=== PATIENT | female | born 1990 | race African-American/Black ===

== ENCOUNTER 2016-05-18 09:19 | Emergency (ER) | payer OTHER ==
[2016-05-18] MEDS ORDERED: IBUPROFEN 800 MG TABLET PO STA (09:47)
[2016-05-18] MEDS ORDERED: IBUPROFEN 800 MG TABLET PO ONE (09:53)
== END 2016-05-18 11:35 | disposition home or self-care (01) ==
DX: J02.9 Acute pharyngitis, unspecified (principal)
CPT/HCPCS: 36415; 86308; 87070; 87430; 99283; A9270

== ENCOUNTER 2016-10-24 15:55 | Emergency (ER) | payer OTHER ==
[2016-10-24 17:43] LABS: BILIRUBIN,URINE NEGATIVE (NEGATIVE)
[2016-10-24 17:44] LABS: UA CHARGE (STRIP ONLY) YES; UR CULTURE IF IND NOT INDICATED
[2016-10-24 17:46] LABS: HCG UR QUAL POSITIVE
--- NOTE | 2016-10-24 18:13 | ED Physician Documentation ---
History of Present Illness - Stated complaint Stated Complaint: FEMALE - Chief complaint Chief Complaint: General - Additonal information Additional information: Very nice 26-year-old 1 para 0 diagnosed herself with today by urine testing. Should her last normal menses was September 02. She took Plan B at the end of August and had some bleeding September 17 she has not had any menses from that time to the present. She did have some bleeding on Sunday and Sunday with cramping and possible passage of clots and it had more cramping today without bleeding. There is no abdominal pain. She has not had any fever chills, constipation diarrhea lower urinary symptoms. She is otherwise healthy there is no syncopal episode. Review of systems: For pertinent positive and negatives in the review of systems please see the history of present illness, otherwise all other systems have been reviewed and are negative. Dragon disclaimer: Parts of this medical record were created using voice recognition technology. Because of the inherent limitations of this system, occasional same sounding word substitutions do occur and persist despite proofreading. Please read the document for context. 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 - Present Medications Home Medications: Ambulatory Orders Medication Instructions Recorded Confirmed No Known Home Medications [No 10/24/16 10/24/16 Known Home Medications] - Allergies Allergies/Adverse Reactions: Allergies Allergy/AdvReac Type Severity Reaction Status Date / Time No Known Drug Allergies Allergy Verified 10/24/16 16:05 - Social History Does the pt smoke?: No Smoking Status: Never smoker Does the pt drink ETOH?: Yes Does the pt have substance abuse?: No - Immunizations Immunizations are current?: Yes - POLST Patient has POLST: No PD ED PE NORMAL - Vitals Vital signs reviewed: Yes - General General: Alert and oriented X 3, No acute distress, Well developed/nourished - HEENT HEENT: Atraumatic, PERRL, EOMI - Neck Neck: Supple, no meningeal sign, No bony TTP, No adenopathy - Cardiac Cardiac: RRR, No murmur, No gallop, No rub - Respiratory Respiratory: No respiratory distress, Clear bilaterally - Abdomen Abdomen: Normal bowel sounds, Soft, Non tender, Non distended - Female Female : Deferred, Pt declined, Dye Stand Loader present, Other - Back Back: No CVA TTP, No spinal TTP Results - Vitals Vitals: Vital Signs - 24 hr 10/24/16 16:02 Temperature 36.7 C Heart Rate 104 H Respiratory 18 Rate Blood Pressure 138/78 H O2 Saturation 100 Oxygen O2 Source Room air - Labs Labs: Laboratory Tests 10/24/16 10/24/16 10/24/16 17:25 17:25 18:14 WBC 7.3 RBC 4.73 Hgb 13.7 Hct 40.7 MCV 86.1 MCH 28.9 MCHC 33.6 RDW 12.9 Plt Count 272 MPV 7.4 L Neut # 3.3 Lymph # 2.9 [place] # 0.9 Eos # 0.1 Baso # 0.1 Absolute Nucleated RBC 0.00 Nucleated RBCs 0.0 Sodium Potassium Chloride Carbon Dioxide Anion Gap BUN Creatinine Estimated GFR (MDRD) Glucose Calcium Total Bilirubin Direct Bilirubin AST ALT Alkaline Phosphatase Total Protein Albumin Globulin HCG, Quant Urine Color YELLOW Urine Clarity CLEAR Urine pH 7.0 Ur Specific [place] 1.015 1.015 Urine Protein NEGATIVE Urine Glucose (UA) NEGATIVE Urine Ketones NEGATIVE Urine Occult Blood NEGATIVE Urine Nitrite NEGATIVE Urine Bilirubin NEGATIVE Urine Urobilinogen 0.2 (NORMAL) Ur Leukocyte Esterase NEGATIVE Ur Microscopic Review NOT INDICATED Urine Culture Comments NOT INDICATED Urine HCG, Qual POSITIVE Blood Type Antibody Screen 10/24/16 10/24/16 10/24/16 18:14 18:14 18:14 WBC RBC Hgb Hct MCV MCH MCHC RDW Plt Count MPV Neut # Lymph # [place] # Eos # Baso # Absolute Nucleated RBC Nucleated RBCs Sodium 135 Potassium 3.6 Chloride 104 Carbon Dioxide 23 Anion Gap 8.0 BUN 11 Creatinine 0.8 Estimated GFR (MDRD) 105 Glucose 92 Calcium 9.4 Total Bilirubin Direct Bilirubin AST ALT Alkaline Phosphatase Total Protein Albumin Globulin HCG, Quant 42159.00 Urine Color Urine Clarity Urine pH Ur Specific [place] Urine Protein Urine Glucose (UA) Urine Ketones Urine Occult Blood Urine Nitrite Urine Bilirubin Urine Urobilinogen Ur Leukocyte Esterase Ur Microscopic Review Urine Culture Comments Urine HCG, Qual Blood Type B POSITIVE Antibody Screen NEGATIVE 10/24/16 18:14 WBC RBC Hgb Hct MCV MCH MCHC RDW Plt Count MPV Neut # Lymph # [place] # Eos # Baso # Absolute Nucleated RBC Nucleated RBCs Sodium Potassium Chloride Carbon Dioxide Anion Gap BUN Creatinine Estimated GFR (MDRD) Glucose Calcium Total Bilirubin 0.4 Direct Bilirubin < 0.1 L AST 22 ALT 18 Alkaline Phosphatase 31 L Total Protein 7.8 Albumin 4.3 Globulin 3.5 HCG, Quant Urine Color Urine Clarity Urine pH Ur Specific [place] Urine Protein Urine Glucose (UA) Urine Ketones Urine Occult Blood Urine Nitrite Urine Bilirubin Urine Urobilinogen Ur Leukocyte Esterase Ur Microscopic Review Urine Culture Comments Urine HCG, Qual Blood Type Antibody Screen PD MEDICAL DECISION MAKING - ED course Complexity details: reviewed results, re-evaluated patient, d/w patient, d/w family, d/w medical cost consultant ED course: Pleasant 26-year-old female who it appears as an ectopic . Her quant is 17,000 without IUP on ultrasound. In addition there is a cystic mass in the right lower quadrant that is thick-walled at about 2.4 cm it probably represents an ectopic . The patient clinically is doing very well. Her os is closed on examination without bleeding. There is no free fluid in the abdomen she looks and feels good. She is more or less asymptomatic the case was discussed with CHECK GRADER who came in right away to see the patient. She was examined and we had a discussion. We think this patient is probably a good candidate for multiple dose methotrexate therapy. The patient is completely asymptomatic and looks to be in good condition. She was given a dose of methotrexate here and will follow up with CHECK GRADER tomorrow for leuko-Matt in addition of methotrexate therapy over the next week. The patient is given symptoms to watch for and should she get worse anyway she should return to the emergency department right away. Disposition: To home Clinical impression: 1. Ectopic started on methotrexate therapy tonight follow-up tomorrow with CHECK GRADER Departure - Departure Disposition: Home, Self Care Clinical Impression: Ectopic of ovary Qualifiers: Intrauterine status: without intrauterine Qualified Code(s) : O00.20 - Ovarian without intrauterine Condition: Good Instructions: ED Preg Ectopic Methotrexate Tx Follow-Up: Yadiel Deshpande MD [Provider Admit Priv/Credential] - Comments: Follow-up with Dr. Tobar tomorrow
[2016-10-24 18:39] LABS: CALCIUM 9.4 mg/dL (8.5-10.3); CREATININE 0.8 mg/dL (0.4-1.0); POTASSIUM 3.6 mmol/L (3.5-5.0)
[2016-10-24 18:43] LABS: BASOPHILS # (AUTO) 0.1 10^3/uL (0.0-0.1); EOSINOPHILS # (AUTO) 0.1 10^3/uL (0.0-0.7); HCT - HEMATOCRIT 40.7 % (37.0-47.0); HGB - HEMOGLOBIN 13.7 g/dL (12.0-16.0); LYMPHOCYTES # (AUTO) 2.9 10^3/uL (1.5-3.5); LYMPHOCYTES % (AUTO) 39.7 %; MEAN CORPUSCULAR HEMOGLOBIN 28.9 pg (27.0-31.0); MEAN CORPUSCULAR HGB CONC 33.6 g/dL (32.0-36.0); MEAN CORPUSCULAR VOLUME 86.1 fL (81.0-99.0); MEAN PLATELET VOLUME 7.4 fL (7.9-10.8); MONOCYTES # (AUTO) 0.9 10^3/uL (0.0-1.0); MONOCYTES % (AUTO) 12.7 %; NEUTROPHILS # (AUTO) 3.3 10^3/uL (1.5-6.6); NEUTROPHILS % (AUTO) 45.6 %; RED BLOOD COUNT 4.73 10^6/uL (4.20-5.40); RED CELL DISTRIBUTION WIDTH 12.9 % (12.0-15.0); UNCORRECTED WHITE BLOOD COUNT 7.3 x10^3/uL; WHITE BLOOD COUNT 7.3 x10^3/uL (4.8-10.8)
--- NOTE | 2016-10-24 20:40 | Ultrasound Report ---
EXAM: FIRST TRIMESTER OBSTETRIC ULTRASOUND (Less than 11 weeks) EXAM DATE: 10/24/2016 08:03 PM. CLINICAL HISTORY: Vaginal bleeding early preg. LMP: 09/17/2016. COMPARISONS: None. TECHNIQUE: Transabdominal and transvaginal ultrasound examination with static image documentation. CLINICAL DATES: EGA 5 weeks 2 days with JARED 06/24/2017 based on LMP. ASSESSMENT: Gestational Sac: No intrauterine gestational sac visualized. MATERNAL STRUCTURES: Uterus: Anteverted. Posterior intramural fibroid measuring 2.5 x 1.9 x 2.3 cm.. Heterogeneous endomet rium Cervix: Closed. Right Ovary/Adnexa: Normal morphology.. The ovary measures 2.0 x 1.9 x 2.5 cm, volume 7 cc. Left Ovary/Adnexa: There is a thick walled, 2.1 x 2.4 x 1.9 cm left pelvic cystic mass with periphera l hyperemia. No normal left ovary seen. This is suspicious for either an ectopic or corpus luteal cyst.. Free Fluid: None. Other: None. IMPRESSION: 1. No intrauterine . 2. The left ovary is not visualized. There is however a thick walled 2.4 cm left pelvic cystic mass s uspicious for ectopic . Corpus luteal cyst however may have a similar appearance. Correlatio n with clinical findings including beta hCG advised as discussed with Dr. Montero. ERICK The above findings were discussed with Winston by Dr. Moises Chavez at 20:36 hrs on 10/24/16. Referring Provider Line: [phone] SITE ID: [id number]
--- NOTE | 2016-10-24 20:45 | Ultrasound Preliminary Report ---
Exam: US OB TRANSVAGINAL Please refer to combined report. SITE ID: [id number]
--- NOTE | 2016-10-24 20:48 | Ultrasound Report ---
Please refer to combined OB ultrasound report. Referring Provider Line: [phone] SITE ID: [id number]
[2016-10-24] MEDS ORDERED: METHOTREXATE 50 MG/2 ML MDV ONE ×2 (22:07→22:57)
[2016-10-24] MEDS ORDERED: METHOTREXATE 50 MG/2 ML MDV IM STA (22:40)
[2016-10-24 23:06] LABS: BILIRUBIN,TOTAL 0.4 mg/dL (0.2-1.0); TOTAL PROTEIN 7.8 g/dL (6.7-8.2)
[2016-10-24 23:09] LABS: BILIRUBIN,DIRECT < 0.1 mg/dL (0.1-0.5)
[2016-10-25 00:18] VITALS: BP 144/77
--- NOTE | 2016-10-25 00:56 | HISTORY & PHYSICAL EXAMINATION ---
DATE OF ADMISSION: 10/24/2016 IDENTIFICATION: A 26-year-old G1, P0 female whose last normal menstrual period was 09/03/2016. CHIEF COMPLAINT: Positive test. HISTORY OF PRESENT ILLNESS: The patient had her last menstrual period on the 03 of September. She took Plan B on 09/10/2016 because of concerns about conception. She had some bleeding on 09/17/2016. On the 24 of September she took a second Plan B. On the 22 of October she developed some bleeding and passed tissue. She took a test at that time and was noted to be positive. She called the clinic and was sent here for evaluation. She denies any pelvic pain at this time. She denies any bleeding at this time. Her ultrasound in the emergency room showed a mass in the left side of the adnexa and her quantitative hCG was 17,000. She states the when she had her ultrasound there was tenderness on the left hand side with vaginal probe. She denies any history of PID, chlamydia or IUD use. PAST MEDICAL HISTORY: The patient denies any hypertensive, diabetic, or pulmonary disease. PAST SURGICAL HISTORY: Positive for benign tumor in the right breast, which was removed in 2013. ALLERGIES: NONE KNOWN. CURRENT MEDICATIONS: None. HABITS: The patient denies use of tobacco, drinks alcohol maybe 2-3 times per month and denies use of any street drugs. 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 FAMILY HISTORY: Positive for diabetes in an uncle. REVIEW OF SYSTEMS: Negative concerning vision, hearing, sense of smell or taste , chronic cough, sputum production, shortness of breath, chest pain, nausea, vomiting, diarrhea, constipation, joint pain, muscle weakness, seizures, loss of consciousness, numbness or tingling in any portion of the body. PHYSICAL EXAMINATION: GENERAL: The patient is a well-developed, well-nourished black female. She is stable at this time. She weighs 76 kilograms. VITAL SIGNS: Temperature is 96.7, heart rate is 104, blood pressure was 138/78, respirations were 18. She is 100% on room air. HEENT: Pupils are equal, round. Extraocular muscles are intact. HEART: Regular rate and rhythm without murmurs. LUNGS: [place] are clear without rales or wheezes. BACK: No spinal or CVA tenderness noted. ABDOMEN: Soft with bowel sounds. It is nontender throughout. There is no evidence of rebound or guarding. EXTREMITIES: DTRs are 2+. There was no evidence of any clonus. Ultrasound showed a left adnexal mass which was 2.4 cm. There was no fluid in the pelvis and the uterus is empty at this time. Quantitative hCG is 17,043 international units. Her CBC showed a white count of 7.3, hemoglobin 13.7, platelets are 274. Electrolytes were all within normal limits. IMPRESSION: A 26-year-old, G1, P0 female with evidence of an ectopic , which is stable at this time. I have reviewed up to date regarding the use of methotrexate and a single dose is contraindicated in quant value greater than 5000. However, she is potentially a candidate for multiple doses of methotrexate 1 mg/kg IM days 1, 3, 5, and 7. This would also require leucovorin days 0.1 mg/kg days 2, 4, 6 and 8. She would need to have quantitative hCGs drawn on the basis of her methotrexate injection. PLAN: Atthis time pt requests Methotrexate. risks and benifits explained. JOB #: [id number] EXT JOB #:[id number] MTDAna
== END 2016-10-25 | disposition home or self-care (01) ==
LOC: ED 15:55
DX: O00.20 Ovarian pregnancy without intrauterine pregnancy (principal)
CPT/HCPCS: 36415; 76801; 76817; 80048; 80076; 81003; 81025; 84702; 85025; 86850; 86900; 86901; 96372; 99283; J9250; 81001; 87086

== ENCOUNTER 2016-11-03 09:40 | Outpatient (CLI) | payer OTHER ==
[2016-11-03 10:09] LABS: BASOPHILS % (AUTO) 0.2 %; EOSINOPHILS # (AUTO) 0.1 10^3/uL (0.0-0.7); HCT - HEMATOCRIT 38.3 % (37.0-47.0); HGB - HEMOGLOBIN 12.8 g/dL (12.0-16.0); LYMPHOCYTES % (AUTO) 29.4 %; MEAN CORPUSCULAR HGB CONC 33.5 g/dL (32.0-36.0); MEAN CORPUSCULAR VOLUME 86.5 fL (81.0-99.0); MEAN PLATELET VOLUME 7.1 fL (7.9-10.8); MONOCYTES # (AUTO) 0.3 10^3/uL (0.0-1.0); NEUTROPHILS # (AUTO) 4.4 10^3/uL (1.5-6.6); NEUTROPHILS % (AUTO) 65.4 %; RED BLOOD COUNT 4.43 10^6/uL (4.20-5.40); RED CELL DISTRIBUTION WIDTH 12.5 % (12.0-15.0); UNCORRECTED WHITE BLOOD COUNT 6.8 x10^3/uL; WHITE BLOOD COUNT 6.8 x10^3/uL (4.8-10.8)
[2016-11-03 10:13] LABS: CALCIUM 9.4 mg/dL (8.5-10.3); CREATININE 0.7 mg/dL (0.4-1.0); POTASSIUM 3.9 mmol/L (3.5-5.0)
== END 2016-11-03 09:41 | disposition home or self-care (01) ==
LOC: LAB 09:40
PROVIDERS: ATTEND Obstetrics & Gynecology
DX: O00.10 Tubal pregnancy without intrauterine pregnancy (principal)
CPT/HCPCS: 36415; 80048; 84702; 85025

== ENCOUNTER 2016-11-06 14:33 | Outpatient (CLI) | payer OTHER | END 2016-11-06 14:34 | disposition home or self-care (01) | LOC: LAB 14:33 | PROVIDERS: ATTEND Obstetrics & Gynecology | DX: O00.90 Unspecified ectopic pregnancy without intrauterine pregnancy (principal) | CPT/HCPCS: 36415; 84702 ==

== ENCOUNTER 2016-11-13 11:03 | Outpatient (CLI) | payer OTHER | END 2016-11-13 11:04 | disposition home or self-care (01) | LOC: LAB 11:03 | PROVIDERS: ATTEND Obstetrics & Gynecology | DX: O00.10 Tubal pregnancy without intrauterine pregnancy (principal) | CPT/HCPCS: 36415; 84702 ==

== ENCOUNTER 2016-11-20 09:55 | Outpatient (CLI) | payer OTHER | END 2016-11-20 09:56 | disposition home or self-care (01) | LOC: LAB 09:55 | PROVIDERS: ATTEND Obstetrics & Gynecology | DX: Z32.00 Encounter for pregnancy test, result unknown (principal) | CPT/HCPCS: 36415; 84702 ==

== ENCOUNTER 2016-11-27 08:00 | Outpatient (CLI) | payer OTHER | END 2016-11-27 08:01 | disposition home or self-care (01) | LOC: LAB.WCP 08:00 | PROVIDERS: ATTEND Obstetrics & Gynecology | DX: Z32.00 Encounter for pregnancy test, result unknown (principal) | CPT/HCPCS: 36415; 84702 ==

== ENCOUNTER 2016-12-04 08:00 | Outpatient (CLI) | payer OTHER | END 2016-12-04 08:01 | disposition home or self-care (01) | LOC: LAB.WCP 08:00 | PROVIDERS: ATTEND Obstetrics & Gynecology | DX: O00.80 Other ectopic pregnancy without intrauterine pregnancy (principal) | CPT/HCPCS: 36415; 84702 ==

== ENCOUNTER 2017-01-01 10:19 | Outpatient (CLI) | payer OTHER | END 2017-01-01 10:20 | disposition home or self-care (01) | LOC: LAB.WCP 10:19 | PROVIDERS: ATTEND Obstetrics & Gynecology | DX: O00.80 Other ectopic pregnancy without intrauterine pregnancy (principal) | CPT/HCPCS: 36415; 84702 ==

== ENCOUNTER 2017-04-15 12:52 | Emergency (ER) | payer OTHER ==
--- NOTE | 2017-04-15 14:00 | ED Physician Documentation ---
History of Present Illness - Stated complaint Stated Complaint: FEMALE - Chief complaint Chief Complaint: General - History obtained from History obtained from: Patient - History of Present Illness Timing: Other (She had an ectopic about 5 months ago treated with methotrexate. Her menses had been normal and regular since then and her last menses was March 05. Starting about 3 weeks ago she has had spotting and never really had a period since. There is no cramping or heavy bleeding. 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 - Present Medications Home Medications: Ambulatory Orders Medication Instructions Recorded Confirmed No Known Home Medications [No 10/24/16 10/26/16 Known Home Medications] - Allergies Allergies/Adverse Reactions: Allergies Allergy/AdvReac Type Severity Reaction Status Date / Time No Known Drug Allergies Allergy Verified 04/15/17 13:07 - Social History Does the pt smoke?: No Smoking Status: Never smoker Does the pt drink ETOH?: Yes Does the pt have substance abuse?: No - Immunizations Immunizations are current?: Yes - POLST Patient has POLST: No PD ED PE NORMAL - Vitals Vital signs reviewed: Yes - General General: Alert and oriented X 3, No acute distress - Abdomen Abdomen: Soft, Non tender - Neuro Neuro: Alert and oriented X 3, Normal speech - Psych Psych: Normal mood, Normal affect Results - Vitals Vitals: Vital Signs - 24 hr 04/15/17 13:03 Temperature 36.8 C Heart Rate 105 H Respiratory 16 Rate Blood Pressure 144/78 H O2 Saturation 98 Oxygen O2 Source Room air - Labs Labs: Laboratory Tests 04/15/17 13:54 Urine Color YELLOW Urine Clarity CLEAR Urine pH 7.0 Ur Specific [place] 1.015 Urine Protein NEGATIVE Urine Glucose (UA) NEGATIVE Urine Ketones NEGATIVE Urine Occult Blood NEGATIVE Urine Nitrite NEGATIVE Urine Bilirubin NEGATIVE Urine Urobilinogen 0.2 (NORMAL) Ur Leukocyte Esterase NEGATIVE Ur Microscopic Review NOT INDICATED Urine Culture Comments NOT INDICATED Urine HCG, Qual NEGATIVE Departure - Departure Disposition: 01 Home, Self Care Clinical Impression: Irregular menses Condition: Good Record reviewed to determine appropriate education?: Yes Instructions: ED Bleed Irregular Vaginal Follow-Up: [facility] [Provider Group] Comments: Your blood pressure was elevated today on check into the emergency department. This does not mean that you have hypertension, it is a common phenomenon to come to the emergency department and have elevated blood pressure. I recommend that you see your primary care physician within the week to have it rechecked when you are feeling better.
[2017-04-15 14:12] LABS: BILIRUBIN,URINE NEGATIVE (NEGATIVE); CLARITY,URINE CLEAR (CLEAR); GLUCOSE, URINE (UA) NEGATIVE (NEGATIVE); KETONES,URINE (UA) NEGATIVE (NEGATIVE); LEUKOCYTE ESTERASE, URINE NEGATIVE (NEGATIVE); NITRITE,URINE NEGATIVE (NEGATIVE); OCCULT BLOOD,URINE NEGATIVE (NEGATIVE); PROTEIN,URINE NEGATIVE (NEGATIVE); UROBILINOGEN,URINE 0.2 (NORMAL) E.U./dL (NORMAL)
[2017-04-15 14:58] LABS: HCG UR QUAL NEGATIVE
[2017-04-15 15:07] VITALS: BP 138/76
== END 2017-04-15 15:05 | disposition home or self-care (01) ==
LOC: ED 12:52
DX: N92.6 Irregular menstruation, unspecified (principal); R03.0 Elevated blood-pressure reading, without diagnosis of hypertension
CPT/HCPCS: 81001; 81003; 81025; 87086; 99282; 99283